=== PATIENT | male | born 1960 | race Caucasian/White ===

== ENCOUNTER → 2018-03-20 | Outpatient (CLI) | payer BC ==
[2015-11-18 09:18] VITALS: BP 165/98
[~2018-03-20] MED LIST: NEPA1.7D OP; OMEP20CA9 PO
--- NOTE | 2018-03-20 15:05 | RAD ---
Three-view left knee study Clinical indications: Left knee pain and swelling for a week. FINDINGS: No acute fracture or dislocation or osteolytic process is seen. No significant arthritic change is evident. Mild swelling of the suprapatellar bursa consistent with a small joint effusion is seen. Mild calcified atheromatous arterial disease is seen. IMPRESSION: No acute osseous abnormality. Electronically signed by: Master Reno MD (03/20/2018 3:02 PM) [id number]
== END | disposition home or self-care (01) ==
LOC: PMG 11:01
PROVIDERS: ATTEND Family Medicine
DX: M25.462 Effusion, left knee (principal); I70.298 Other atherosclerosis of native arteries of extremities, other extremity
CPT/HCPCS: 73562

== ENCOUNTER 2018-12-11 10:17 | Observation (INO) | payer BC ==
[2018-12-11] VITALS (8 sets, daily range): BP systolic 126–170; BP diastolic 78–104
[~2018-12-11] VITALS: Ht 182.9 cm; Wt 97.6 kg
--- NOTE | 2018-12-11 10:50 | PHYS DOC ---
Past History Past Medical History: Hypertension Past Surgical History: No Surgical History Smoking: Non-smoker Additional Smoking Information: vape Alcohol Use: Heavy Additional Alcohol Information: 1-2 cases per week Drug Use: None Adult General Chief Complaint Chief Complaint: SYNCOPE [facility] HPI Patient is a 58 year old male who brought in by EMS because of a syncopal episode. Patient states he was sitting in a meeting at his work and felt dizzy and then opened his eyes and sow people around him. Patient states he felt disoriented after the syncope patient denies chest pain, palpitation, focal neuro deficit, headache, nausea and vomiting before or after the episode. Patient had urine incontinence. Bystanders did not report seizure activity. Patient had blood pressure of 90s and heart rate of 59 at EMS arrival. Patient states he had history of syncope a long time ago. Patient states he drinks alcohol frequently and had about 10 beers last night. Patient states he usually drinks to 12 case of beer/week. Review of Systems Review of Systems Constitutional: Denies fever or chills [] Eyes: Denies change in visual acuity, redness, or eye pain [] HENT: Denies nasal congestion or sore throat [] Respiratory: Denies cough or shortness of breath [] Cardiovascular: No additional information not addressed in HPI [] GI: Denies abdominal pain, nausea, vomiting, bloody stools or diarrhea [] : Denies dysuria or hematuria [] Musculoskeletal: Denies back pain or joint pain [] Integument: Denies rash or skin lesions [] Neurologic: Denies headache, focal weakness or sensory changes [] Endocrine: Denies polyuria or polydipsia [] All other systems were reviewed and found to be within normal limits, except as documented in this note. Allergies Allergies Allergies Coded Allergies Type Severity Reaction Last Updated Verified No Known Drug Allergies 11/18/15 No Physical Exam Physical Exam Constitutional: Well developed, well nourished, no acute distress, non-toxic appearance. [] HENT: Normocephalic, atraumatic, oropharynx moist, no oral exudates, nose normal. [] Eyes: PERRLA, EOMI, conjunctiva normal, no discharge. [] Neck: Normal range of motion, no tenderness, supple, no stridor. [] Cardiovascular:Heart rate regular rhythm, no murmur [] Lungs & Thorax: Bilateral breath sounds clear to auscultation [] Abdomen: Bowel sounds normal, soft, no tenderness, no masses, no pulsatile masses. [] Skin: Warm, dry, no erythema, no rash. [] Back: No tenderness, no CVA tenderness. [] Extremities: No tenderness, no cyanosis, no clubbing, ROM intact, no edema. [] Neurologic: Alert and oriented X 3, normal motor function, normal sensory function, no focal deficits noted. [] Psychologic: Affect normal, judgement normal, mood normal. [] EKG EKG EKG interpreted by me. EKG at 1024 showed normal sinus rhythm at rate of 62, normal VA and QT intervals, no acute ST and T-wave abnormalities. Radiology/Procedures Radiology/[place] [address] IMAGING REPORT Signed PATIENT: NINA BULLARD ACCOUNT: [id number] : 1960 LOCATION: ER AGE: 58 SEX: M EXAM STATUS: REG ER ORD. PHYSICIAN: KALEN CAR MD REASON: syncope PROCEDURE: CT HEAD WO CONTRAST CT HEAD WITHOUT CONTRAST 12/11/2018 10:49 AM Indication: SYNCOPE TODAY Comparison: None available Procedure: Multidetector CT imaging of the head was performed without the administration of contrast. Findings: The inferior most temporal lobes are not included on this exam, limiting study. Visualized structures demonstrate no evidence of acute intracranial hemorrhage. No evidence of acute mass effect or midline shift is seen. The ventricles and basilar cisterns have an unremarkable configuration. No acute abnormal extra-axial fluid collections are identified. No acute osseous changes are seen. IMPRESSION: 1. The inferior most temporal lobes are not visualized on this study. Consider repeat study as indicated. 2. Otherwise no acute intracranial abnormality is identified CT DOSING PQRS STATEMENT: One or more of the following individualized dose reduction techniques were utilized for this examination: 1. Automated exposure control 2. Adjustment of the mA and/or kV according to patient size 3. Use of iterative reconstruction technique Electronically signed by: Preet Steiner MD (12/11/2018 11:07 AM) [facility] DICTATED AND SIGNED BY: PREET STEINER MD DATE: 12/11/18 2175 CC: KALEN CAR MD; MISTI BARRIENTOS MD ~ Course & Med Decision Making Course & Med Decision Making Pertinent Labs and Imaging studies reviewed. (See chart for details) Evaluation of patient in ER showed 58-year-old male patient brought in by EMS because of syncopal episode. Patient had unremarkable physical exam, CT head, labs and EKG. Patient had urine incontinence. Alcohol level was 70. Plan to admit patient for evaluation of syncope. Dragon Disclaimer Dragon Disclaimer This electronic medical record was generated, in whole or in part, using a voice recognition dictation system. Departure Departure: Impression: Primary Impression: Syncope Additional Impression: Alcohol abuse Disposition: 09 ADMITTED INPATIENT (@1053) Admitting Physician: Lincoln Dela Cruz (accepted admission at 1052) Condition: STABLE Referrals: MISTI BARRIENTOS MD (PCP) Problem Qualifiers KALEN CAR MD Dec 11, 2018 10:50
--- NOTE | 2018-12-11 11:10 | RAD ---
CT HEAD WITHOUT CONTRAST 12/11/2018 10:49 AM Indication: SYNCOPE TODAY Comparison: None available Procedure: Multidetector CT imaging of the head was performed without the administration of contrast. Findings: The inferior most temporal lobes are not included on this exam, limiting study. Visualized structures demonstrate no evidence of acute intracranial hemorrhage. No evidence of acute mass effect or midline shift is seen. The ventricles and basilar cisterns have an unremarkable configuration. No acute abnormal extra-axial fluid collections are identified. No acute osseous changes are seen. IMPRESSION: 1. The inferior most temporal lobes are not visualized on this study. Consider repeat study as indicated. 2. Otherwise no acute intracranial abnormality is identified CT DOSING PQRS STATEMENT: One or more of the following individualized dose reduction techniques were utilized for this examination: 1. Automated exposure control 2. Adjustment of the mA and/or kV according to patient size 3. Use of iterative reconstruction technique Electronically signed by: Preet Willis MD (12/11/2018 11:07 AM) [facility]
[2018-12-11 11:41] LABS: BASO % 1 % (0-3); EOS # 0.1 x10^3/uL (0.0-0.7); EOS % 1 % (0-3); HEMATOCRIT 41.2 % (39.0-53.0); HEMOGLOBIN 14.1 g/dL (13.0-17.5); LYMPH # 1.3 x10^3/uL (1.0-4.8); LYMPH % 13 % (24-48); MEAN CORPUSCULAR HEMOGLOBIN 34 pg (25-35); MEAN CORPUSCULAR HGB CONC 34 g/dL (31-37); MEAN CORPUSCULAR VOLUME 100 fL (79-100); MONO # 0.4 x10^3/uL (0.0-1.1); MONO % 4 % (0-9); NEUT % 82 % (31-73); PLATELET COUNT 179 x10^3/uL (140-400); RED BLOOD COUNT 4.12 x10^6/uL (4.30-5.70); RED CELL DISTRIBUTION WIDTH 12.8 % (11.5-14.5); WHITE BLOOD COUNT 9.8 x10^3/uL (4.0-11.0)
[2018-12-11 11:53] LABS: ALBUMIN 3.4 g/dL (3.4-5.0); ALBUMIN/GLOBULIN RATIO 1.1 (1.0-1.7); CALCIUM 8.8 mg/dL (8.5-10.1); CREATININE 0.8 mg/dL (0.7-1.3); GFR 98.9; POTASSIUM 4.2 mmol/L (3.5-5.1); TOTAL BILIRUBIN 0.2 mg/dL (0.2-1.0); TOTAL PROTEIN 6.5 g/dL (6.4-8.2)
[2018-12-11 11:54] LABS: BARBITURATES NEG (NEG); BENZODIAZEPINES NEG (NEG); CANNABINOIDS NEG (NEG); COCAINE NEG (NEG); METHADONE NEG (NEG); OPIATES NEG (NEG); PHENCYCLIDINE NEG (NEG)
[2018-12-11 11:57] LABS: AMPHETAMINE/METHAMPHETAMINE NEG (NEG)
[2018-12-11 11:58] LABS: BILIRUBIN,URINE NEG (NEG); CLARITY,URINE CLEAR; COLOR,URINE YELLOW; GLUCOSE,URINE NEG (NEG); NITRITE,URINE NEG (NEG); UROBILINOGEN,URINE 0.2 mg/dL (0.2 mg/dL)
[2018-12-11 11:59] LABS: BACTERIA,URINE FEW /HPF (0-FEW); GRANULAR CASTS,URINE OCC /HPF; HYALINE CASTS, URINE MOD /HPF; SQUAMOUS EPITHELIAL CELL,UR FEW /LPF
--- NOTE | 2018-12-11 12:33 | EKG ---
[address] [address] Test Date: 2018-12-11 Test Time: 10:24:40 Pat Name: NINA BULLARD Department: Room: 117 A Gender: M Fence Installer Foreman: : 1960 Requested By: KALEN CAR Order Number: [id number] Reading MD: Norberto Romo MD Measurements Intervals Page Rate: 62 P: -33 WA: 148 QRS: 41 QRSD: 98 T: 35 QT: 400 QTc: 408 Interpretive Statements SINUS RHYTHM Electronically Signed On 12-15-2018 13:10:59 CDT by Norberto Romo MD
[2018-12-11] MEDS ORDERED: LOSA50TA3 PO (13:09)
[2018-12-11] MEDS ORDERED: MVI, ADULT NO.4 WITH VIT K 10 ML, FOLIC ACID INJ 1 MG, THIAMINE INJ 100 MG in IV NORMAL... IV ONE ×4 (13:45)
[2018-12-11] MEDS ORDERED: LORazepam 0.5 MG TABLET PO PRN (13:45)
[2018-12-11] MEDS ORDERED: NEPAFENAC OP SCH (18:45)
--- NOTE | 2018-12-11 18:59 | HP ---
ADMIT DATE: 12/11/2018 The patient came in through the Emergency Room. HISTORY OF PRESENT ILLNESS: The patient is a 58-year-old male came in via EMS for syncopal episodes. Apparently, he was at a meeting, felt dizzy and was slow to respond. He was disoriented. The patient after the syncope the patient denied any chest pain or palpitations. Otherwise, did have some urinary incontinence. There was no obvious seizure activity; however, he did have urine incontinence. Blood pressure was low in the 90s, heart rate 59 when EMS found him. The patient had a history of syncope, 10 beers previous night. Drinks about 12 cases of beer per week. The patient was admitted for syncope, possible seizure activity. PAST MEDICAL HISTORY: Hypertension, cataract extraction, hearing problem, cervical disk problems, hypertension, obesity, GERD, arthritis, gout, left knee orthopedic surgery. SOCIAL HISTORY: Tobacco abuse, vapor, smoking cessation. He smokes vapors, tried quitting in 11/2017. INFLUENZA VACCINATION: Up-to-date. ALLERGIES: No known allergies. MEDICATIONS: Reconciled. ANUEL GARCES MD DR: CHIOMA/ollie JOB#: [id number] / [id number]
[2018-12-12 05:08] VITALS: BP 147/75
[2018-12-12 08:14] VITALS: BP 162/86
[2018-12-12 08:16] VITALS: BP 163/90
[2018-12-12 08:17] VITALS: BP 163/88
--- NOTE | 2018-12-12 08:26 | RAD ---
CHEST PA LATERAL History: SOA Comparison: None. Findings: The cardiomediastinal silhouette is normal. Pulmonary vasculature is normal. The lungs are clear. No pleural effusion or pneumothorax is seen. There is no acute bone abnormality. IMPRESSION: No acute cardiopulmonary process. Electronically signed by: Dwight Espitia MD (12/12/2018 8:23 AM) [id number]
[2018-12-12] MEDS ORDERED: LOSARTAN 50 MG TABLET. PO SCH ×2 (09:00)
[2018-12-12] MEDS ORDERED: PANTOPRAZOLE 40 MG TABLET. PO SCH (09:00)
[2018-12-12 10:45] VITALS: BP 162/87
--- NOTE | 2018-12-12 16:29 | CONS ---
DATE OF CONSULTATION: 12/11/2018 NEUROLOGY CONSULT REFERRING PHYSICIAN: Dr. Dela Cruz. REASON FOR CONSULTATION: Syncope versus seizure. HISTORY OF PRESENT ILLNESS: This is a 58-year-old right-handed male, who was admitted through Emergency Room after he had a possible syncopal episode. According to the patient, he was sitting in meeting and all of a sudden, he felt dizzy and apparently he leaned to the left side and lost consciousness for 1-2 minutes. EMS was activated and transferred the patient to Emergency Room when he started regaining. The patient was found to be alert and oriented. No seizure-like activities has been reported. However, the patient was somewhat confused and had urine incontinence. The patient never had this problem before and he denies any history of seizure or recent head injuries or fall. According to the patient, he has been drinking heavily for many years and the last drink was the night before admission when he drunk at least 9 beers. On arrival to Emergency Room, his blood pressure was 90s and heart rate was 59. The patient denies any history of alcohol withdrawal seizure. The patient denies chest pain, shortness of breath or palpitation, dysarthria, dysphagia or vertigo. PAST MEDICAL HISTORY: Significant for hypertension, neck pain secondary to degenerative disk disease, GERD, gout, and heavy alcohol use. SOCIAL HISTORY: The patient is . He drinks heavily. He smokes cigar sometimes, but he quit a year ago. OTHER MEDICAL PROBLEMS: Include anxiety. PAST SURGICAL HISTORY: Significant for right cataract extraction, cervical spine surgery for degenerative disk disease and left knee arthroscopic surgeries. CURRENT HOME MEDICATIONS: Losartan 50 mg p.o. daily, Omeprazole 20 mg p.o. daily. ALLERGIES: No known drug allergies. FAMILY HISTORY: Noncontributory. REVIEW OF SYSTEMS: A 10-point review of system was performed as mentioned above in history of present illness. PHYSICAL EXAMINATION: GENERAL: Well-developed, well-nourished male, not in acute distress. He weighs 215 pounds. VITAL SIGNS: Blood pressure 165/94, respiratory rate 20, pulse is 76, oxygen saturation is 93% on room air, and temperature 98. HEENT: Normocephalic, atraumatic, otherwise unremarkable. NECK: Supple. Negative for carotid bruit, lymphadenopathy or thyromegaly. LUNGS: Clear to A and P. CARDIOVASCULAR: Regular rate and rhythm, normal S1, S2. There is no S3, S4 or murmur. ABDOMEN: Soft. Bowel sounds positive. EXTREMITIES: Negative for cyanosis, clubbing, pitting edema. NEUROLOGIC: 1. MENTAL STATUS: The patient is alert and oriented x 3. The speech is fluent. There is no language dysfunction. Memory, judgment, and abstracting thinking are normal. The patient denies hallucination or delusion. 2. CRANIAL NERVES: Visual cuba are full. The pupils are reactive to light and accommodation. The extraocular movements are intact. There is no nystagmus. There is no facial motor or sensory deficit. Hearing is intact bilaterally. The palate is elevated symmetrically. Sternocleidomastoid muscles are powerful bilaterally. The patient shrugs his shoulders symmetrically, protrudes his tongue in the midline without fasciculation or atrophy. 3. MOTOR: No focal muscle bulk was seen. The tone was normal. The strength is 5/5 throughout. Sensory examination revealed normal pinprick, light touch, vibratory and position senses. Deep tendon reflexes were symmetric and active with absent Achilles responses bilaterally. Gait and coordination were normal. DIAGNOSTIC DATA: Nonenhanced CT scan revealed no evidence of acute intracranial process. The inferior temporal lobes were not visualized. A chest x-ray revealed no acute cardiopulmonary process. LABORATORY DATA: CBC revealed white blood cells of 9.8 thousand, hemoglobin 14.1, hematocrit 41.2, platelet count 179,000. Chemistry revealed sodium of 137, potassium 4.2, chloride 103, CO2 21, BUN 8, creatinine 0.8, glucose 92, calcium is 8.8. Troponin level is normal. Urinalysis is negative for urinary tract infection. Urine drug screen is positive for alcohol. IMPRESSION: 1. Possible syncopal episode, etiology is uncertain, rule out dehydration. 2. Rule out seizure, probably alcohol withdrawal; however, the patient has not had any reported convulsions. 3. Longstanding history of alcohol abuse, hypertension, gastroesophageal reflux disease, arthritis and gout. RECOMMENDATIONS: 1. Continue with current management with IV fluid and lorazepam for possible alcohol withdrawal seizure along with pantoprazole. 2. We will arrange for outpatient EEG to rule out a seizure. Otherwise, continue with current management initiated by Dr. Dela Cruz. M Page MENDOZA MD DR: MAHSA/ollie JOB#: [id number] / [id number]
--- NOTE | 2018-12-12 16:47 | SSS ---
ADMIT DATE: HISTORY OF PRESENT ILLNESS: The patient is a 58-year-old male patient. He was brought by emergency medical services for syncopal episode. He was at meeting, felt dizzy and was slow to respond. He was also disoriented. He denied any chest pain or palpitations. Denied biting his tongue, but did have urinary incontinence. There was no obvious seizure activity; however, his blood pressure was also somewhat low with a heart rate of 69 and was evaluated in the Emergency Room. He apparently drank about 10 beers, the night before and he normally drinks about 12 cases of beer per week. He was admitted for possible syncope and possible seizure activity. He was seen in consultation by Dr. Frank and was cleared to go home to follow with his primary care physician. PAST MEDICAL HISTORY: Significant for hypertension, gout, gastroesophageal reflux disease. He also has alcoholism and nicotine dependence. PAST SURGICAL HISTORY: Significant for cervical spine surgery, left knee surgery for a torn meniscus. He has bilateral cataract extraction. ALLERGIES: He has no known drug allergies. MEDICATIONS: He is currently on following medications: He is on losartan potassium 50 mg once a day, ilevro 1.7 mL and omeprazole 20 mg once a day. FAMILY HISTORY: He has 2 sisters, both younger and healthy. His father at the age of 75 because of abdominal aortic aneurysm and end-stage renal disease. Mother at the age of 76 because of metastatic cancer. SOCIAL HISTORY: He is , has 2 kids. Quit smoking a year ago. He is now vaping. He drinks 12 cases of beer a week. He is a newspaper manager. PHYSICAL EXAMINATION: GENERAL: On arrival to the Emergency Room, he looked well and was clearly in no apparent respiratory distress. No pallor, jaundice, cyanosis or thyromegaly. No jugular venous distention. No limb edema. VITAL SIGNS: His heart rate was 72, blood pressure 151/91, temperature was 98.4, respiratory rate was 16 and oxygen saturation was 99%. HEAD, EYES, EARS, NOSE AND THROAT: Showed normocephalic, atraumatic. NECK: Supple. HEART: Showed normal first and second heart sounds. No gallop or murmur. CHEST: Clear to auscultation. No crepitation or rhonchi. ABDOMEN: Distended, soft, nontender. NEUROLOGIC: He was awake, alert, responding appropriately. All his cranial nerves are intact. EXTREMITIES: He moves extremities without difficulty. LABORATORY DATA: His lab work showed a serum sodium 137, potassium 4.2, chloride 103, bicarbonate 21, anion gap of 13, BUN 8, creatinine 0.8, estimated GFR was 90 mL per minute. His glucose was 92, calcium was 8.8, magnesium was 1.8. Total bilirubin, AST, ALT, alkaline phosphatase were normal. Total protein was 6.5, albumin 3.4. His white cell count was 10,000, hemoglobin 14, hematocrit 41, MCV 100, and platelet count of 179,000. Urinalysis was essentially unremarkable. Toxic screen was positive for blood alcohol level of 70 mg/dL. Urinalysis was unremarkable. CT scan of the head showed that the inferior most temporal lobes are not included in this exam; however, the visualized structures demonstrate no evidence of acute intracranial hemorrhage, no evidence of acute mass effect or midline shift is seen. The ventricles and basilar cisterns have an unremarkable configuration. No acute abnormal extraaxial fluid collections are identified. No acute osseous changes are seen. His chest x-ray showed the cardiomediastinal silhouette is normal. Pulmonary vasculature is normal. The lungs are clear, no pleural effusion or pneumothorax is seen. There is no acute bony abnormalities. The patient remained stable throughout stay. He has had no further syncopal episode. On discharge, his heart rate was 58, blood pressure 162/87, temperature was 98, respiratory rate 20, and oxygen saturation was 95%. The patient has been ambulating without assistance or assistive device. ASSESSMENT: 1. Syncopal episode. 2. Hypertension. 3. Gout. 4. Alcoholism. 5. Nicotine dependence. NICHOLAS ORO MD DR: STEF/ollie JOB#: [id number] / [id number]
== END 2018-12-12 16:26 | disposition home or self-care (01) ==
LOC: ER 10:17 → INTOOBSV 10:55 → 1 SOUTH 10:55
PROVIDERS: ADMIT Internal Medicine; ATTEND Internal Medicine
DX: R55 Syncope and collapse (principal); I10 Essential (primary) hypertension; M10.9 Gout, unspecified; F17.200 Nicotine dependence, unspecified, uncomplicated; F41.9 Anxiety disorder, unspecified; K21.9 Gastro-esophageal reflux disease without esophagitis; F10.20 Alcohol dependence, uncomplicated; Z98.42 Cataract extraction status, left eye; Z98.41 Cataract extraction status, right eye; Z23 Encounter for immunization
CPT/HCPCS: 36415; 70450; 71046; 80053; 80307; 81001; 82550; 83735; 84484; 85025; 90471; 90756; 93005; 96365; 96366; 99284; G0378; G0480; G0379; 99285-25; J7030; Q2035

== ENCOUNTER → 2019-01-16 | Outpatient (CLI) | payer BC ==
[~2019-01-16] MED LIST changes: +LOSA50TA3 PO
--- NOTE | 2019-01-16 11:49 | CARD ---
MR#: [id number] Date of Study: 01/16/2019 Ordering Physician: MISTI BARRIENTOS, Referring Physician: MISTI BARRIENTOS, Tech: Renetta Marc APPROVED REPORT EXAM: Two-dimensional and M-mode echocardiogram with Doppler and color Doppler. Other Information Quality : AverageHR: 65bpm INDICATION Murmur RISK FACTORS Hypertension Smoking 2D DIMENSIONS RVDd2.7 (2.9-3.5cm)Left Atrium(2D)4.0 (1.6-4.0cm) IVSd1.2 (0.7-1.1cm)Aortic Root(2D)3.3 (2.0-3.7cm) LVDd5.9 (3.9-5.9cm)LVOT Diameter2.0 (1.8-2.4cm) PWd1.2 (0.7-1.1cm)LVDs3.2 (2.5-4.0cm) FS (%) 45.3 %SV130.7 ml LVEF(%)75.8 (>50%) Aortic Valve AoV Peak Jake.155.5cm/sAoV VTI31.0cm AO Peak GR.9.7mmHgLVOT Peak Jake.156.3cm/s LVOT VTI 34.89cmAO Mean GR.5mmHg NICKY (VMAX)3.36gl1BMA (VTI)3.67cm2 AI P 1/2 Qrvs814xa Mitral Valve MV E Mykqoqig60.6cm/sMV DECEL FOCG737ee MV A Wynrspap477.9cm/sE/A Ratio0.8 Pulmonary Valve PV Peak Twpnhlpn217.7cm/sPV Peak Grad.6mmHg Tricuspid Valve TR P. Mmbrjjoj373nw/sRAP EADKOWLN1saXw TR Peak Gr.99hgEgNLQA56umWx Pulmonary Vein S1 Ygxjenvq33.0cm/sD2 Ighwyzqe21.8cm/s LEFT VENTRICLE The left ventricle is normal size. There is mild to moderate concentric left ventricular hypertrophy. The left ventricular systolic function is normal. The Ejection Fraction is 60%. There is normal LV s egmental wall motion. Transmitral Doppler flow pattern is Grade I-abnormal relaxation pattern. RIGHT VENTRICLE The right ventricle is borderline dilated. There is normal right ventricular wall thickness. The righ t ventricular systolic function is normal. ATRIA The left atrium size is normal. The right atrium size is normal. The interatrial septum is intact wit h no evidence for an atrial septal defect or patent foramen ovale as noted on 2-D or Doppler imaging. AORTIC VALVE The aortic valve is calcified but opens well. Doppler and Color Flow revealed mild aortic regurgitati on. There is no significant aortic valvular stenosis. MITRAL VALVE The mitral valve is normal in structure and function. There is no evidence of mitral valve prolapse. There is no mitral valve stenosis. Doppler and Color-flow revealed trace mitral regurgitation. TRICUSPID VALVE The tricuspid valve is normal in structure and function. Doppler and Color Flow revealed trace tricus pid regurgitation. There is no tricuspid valve stenosis. PULMONIC VALVE The pulmonic valve is not well visualized. Doppler and Color Flow revealed no pulmonic valvular regur gitation. GREAT VESSELS The aortic root is normal in size. The IVC is normal in size and collapses >50% with inspiration. PERICARDIAL EFFUSION There is no evidence of significant pericardial effusion. Critical Notification Critical Value: No <Conclusion> The left ventricular systolic function is normal. The Ejection Fraction is 60%. There is normal LV segmental wall motion. Transmitral Doppler flow pattern is Grade I-abnormal relaxation pattern. Mild aortic regurgitation. Trace mitral regurgitation. Trace tricuspid regurgitation. There is no evidence of significant pericardial effusion. Signed by : George Mosqueda, Electronically Approved : 01/16/2019 11:48:45
== END | disposition home or self-care (01) ==
LOC: ECHO 10:34
PROVIDERS: ATTEND Family Medicine
DX: I35.1 Nonrheumatic aortic (valve) insufficiency (principal); I11.9 Hypertensive heart disease without heart failure; F17.200 Nicotine dependence, unspecified, uncomplicated
CPT/HCPCS: 93306

== ENCOUNTER 2021-11-25 09:20 | Emergency (ER) | payer BC ==
[~2021-11-25] VITALS: Ht 365.8 cm; Wt 100.0 kg
[~2021-11-25 09:20] MED LIST changes: -IOHEXOL 300 MG/ML 75 ML VIAL. IV ONE
[2021-11-25] MEDS ORDERED: FAMOTIDINE 20 MG/2 ML VIAL IVP ONE (09:30)
[2021-11-25] MEDS ORDERED: methylPREDNISolone SOD SUCC PF 125 MG/2 ML VIAL. IV ONE (09:30)
[2021-11-25] MEDS ORDERED: IV NORMAL SALINE 1,000ML 1,000 ML IV ONE (09:30)
[2021-11-25] MEDS ORDERED: diphenhydrAMINE 50 MG/ML VIAL IVP ONE (09:30)
--- NOTE | 2021-11-25 09:42 | PHYS DOC ---
Past History Past Medical History: Hypertension Past Surgical History: No Surgical History Smoking: Non-smoker Alcohol Use: Heavy Drug Use: None Adult General Chief Complaint Chief Complaint: ALLERGIC REACTION HPI HPI Patient is a 61-year-old male presenting via outpatient radiology suite for allergic reaction. Patient who reports having imaging of neck and chest performed given history of sublingual mass that required surgical intervention started experiencing an allergic reaction to administered IV contrast. States he has had IV contrast in the past without issue, but reports today shortly after administration having generalized paresthesias, development of hives in generalized urticaria mostly present to torso, and fullness in his tongue. This was reported to robotic maintenance technician who appropriately transferred patient to ER for further evaluation. He has never had anaphylaxis in the past, no other significant reactions to any known medications previously. Review of Systems Review of Systems Fourteen body systems of review of systems have been reviewed. See HPI for pertinent positives and negative responses, other lockhart all other systems are negative, non-pertinent or non-contributory Current Medications Current Medications Current Medications Medications (Trade) Dose Ordered Sig/Cabrera Start Time Stop Time Status Last Admin Dose Admin Diphenhydramine HCl (Benadryl) 50 mg 1X ONCE 11/25/21 09:30 11/25/21 09:31 DC 11/25/21 09:30 50 MG Famotidine (Pepcid Vial) 20 mg 1X ONCE 11/25/21 09:30 11/25/21 09:31 DC 11/25/21 09:30 20 MG Methylprednisolone Sodium Succinate (SOLU-Medrol 125MG VIAL) 125 mg 1X ONCE 11/25/21 09:30 11/25/21 09:31 DC 11/25/21 09:30 125 MG Sodium Chloride 1,000 ml @ 1,000 mls/hr 1X ONCE 11/25/21 09:30 11/25/21 10:29 11/25/21 09:30 1,000 MLS/HR Allergies Allergies Allergies Coded Allergies Type Severity Reaction Last Updated Verified No Known Drug Allergies 11/18/15 No Physical Exam Physical Exam Constitutional: Well developed, well nourished, no acute distress, non-toxic appearance. HENT: Normocephalic, atraumatic, bilateral external ears normal, oropharynx moist, no oral exudates, nose normal. Eyes: PERRLA, EOMI, conjunctiva normal, no discharge. Neck: Normal range of motion, no tenderness, supple, no stridor. Cardiovascular: Heart rate regular, sinus rhythm, no murmurs rubs or gallops Lungs & Thorax: Bilateral breath sounds clear to auscultation Abdomen: Bowel sounds normal, soft, no tenderness, no masses, no pulsatile masses. Nonsurgical abdomen, no peritoneal signs Skin: Warm, dry, no erythema, no rash. Back: No tenderness, no CVA tenderness. Extremities: No tenderness, no cyanosis, no clubbing, ROM intact, no edema. Neurologic: Alert and oriented X 3, grossly normal motor & sensory function, no focal deficits noted. Psychologic: Affect normal, judgement normal, mood normal. Current Patient Data Vital Signs Vital Signs Date Time Temp Pulse Resp B/P (MAP) Pulse Ox O2 Delivery O2 Flow Rate FiO2 11/25/21 09:21 98.3 80 16 130/83 (99) 96 Room Air Vital Signs Date Time Temp Pulse Resp B/P (MAP) Pulse Ox O2 Delivery O2 Flow Rate FiO2 11/25/21 10:30 58 16 138/84 (102) 92 Room Air 11/25/21 09:21 98.3 EKG EKG [] Radiology/Procedures Radiology/Procedures [] Heart Score C/O Chest Pain: No Risk Factors: Risk Factors: DM, Current or recent (<one month) smoker, HTN, HLP, family history of CAD, obesity. Risk Scores: Risk Factors: DM, Current or recent (<one month) smoker, HTN, HLP, family history of CAD, obesity. Course & Med Decision Making Course & Med Decision Making ABCs unremarkable HPI physical exam and ER intervention improved patient's symptoms with near co mplete resolution Discussed potential of recurrent symptoms and appropriate return precautions discussed. Recommended patient be discharged on Pepcid and steroids but patient and family member deferred as he was asymptomatic. As such, close PCP follow-up and avoidance of IV contrast in the future without appropriate consultation with primary care physician and potential sterile processing technologist advised Kunal Disclaimer Kunal Disclaimer This electronic medical record was generated, in whole or in part, using a voice recognition dictation system. Departure Departure: Impression: Primary Impression: Allergic reaction Disposition: HOME / SELF CARE / HOMELESS Condition: IMPROVED Referrals: MISTI BARRIENTOS MD (PCP) Additional Instructions: You were seen for an allergic reaction, likely due to IV contrast. If you start to have shortness of breath, facial swelling, tongue swelling, difficulty swallowing, or any other concerning symptoms you should take your epipen and call 911 to return to the ED. LEONARDA COSTELLO DO Nov 25, 2021 09:42
[2021-11-25 10:30] VITALS: BP 138/84
== END 2021-11-25 11:23 | disposition home or self-care (01) ==
LOC: ER 09:20
DX: T78.40XA Allergy, unspecified, initial encounter (principal); I10 Essential (primary) hypertension; F10.20 Alcohol dependence, uncomplicated; Y90.9 Presence of alcohol in blood, level not specified; X58.XXXA Exposure to other specified factors, initial encounter
CPT/HCPCS: 96361; 96374; 96375; 99284; J1200; J2930; J3490; J7030

== ENCOUNTER → 2021-11-25 | Outpatient (CLI) | payer BC ==
[~2021-11-25] MED LIST changes: +IOHEXOL 300 MG/ML 75 ML VIAL. IV ONE; +OMEP20CA16 PO; -OMEP20CA9 PO
--- NOTE | 2021-11-25 15:15 | RAD ---
CT NECK CHEST W/CONT History: Tongue cancer Comparison: None. Technique: CT of the neck and chest with intravenous contrast. Findings: CT neck: Mucosa: No mass in the nasal cavity, nasopharynx, oral cavity, oropharynx, larynx, hypopharynx, or pr oximal trachea/esophagus. Oral cavity is partially obscured by dental artifact. Glands: Normal bilateral parotid and submandibular glands. Multiple small hypo-attenuating thyroid no dules. Nodes: No pathologically enlarged or necrotic cervical lymph nodes. Vessels: Vascular structures are patent. No carotid space mass. Bilateral carotid bulb calcification s. Bones: Multilevel cervical disc and facet disease. Uncovertebral hypertrophy narrows the neural carlos homar at multiple levels. CT chest: Pulmonary arteries: Normal caliber. No large or central pulmonary embolism. Aorta and great vessels: Mild ascending aortic ectasia measuring 4.2 cm at the level of right pulmona ry artery. Thyroid: Multiple small hypoattenuating nodules. Mediastinum and bryon: No mediastinal masses or adenopathy is seen. Esophagus: The visualized esophagus is normal. Heart: The heart is normal in size. There is no pericardial effusion. Moderate coronary artery calcif ication. Airways, Lungs, Pleura: Mild emphysematous change. There are to 7 mm left upper lobe pulmonary nodule s (axial image 32, 34). Upper abdomen: Limited evaluation of the upper abdomen is unremarkable. Osseous structures and soft tissues: Within normal limits for age. Impression: 1. No mass or adenopathy identified in the neck. 2. Left upper lobe pulmonary nodules measuring 7 mm of uncertain significance. Recommend follow-up n oncontrast chest CT in 6 months or per oncology protocol. 3. No mediastinal adenopathy. ------ Exposure: One or more of the following individualized dose reduction techniques were utilized for thi s examination: 1. Automated exposure control 2. Adjustment of the mA and/or kV according to patient size 3. Use of iterative reconstruction technique. Electronically signed by: Enio Fernandes MD (11/25/2021 3:13 PM) [id number]
== END ==
LOC: CT 08:24
PROVIDERS: ATTEND Otolaryngology
DX: C04.9 Malignant neoplasm of floor of mouth, unspecified (principal); R91.8 Other nonspecific abnormal finding of lung field; I77.810 Thoracic aortic ectasia; I25.10 Atherosclerotic heart disease of native coronary artery without angina pectoris; J43.9 Emphysema, unspecified; M50.30 Other cervical disc degeneration, unspecified cervical region
CPT/HCPCS: 70491; 71260; Q9967